=== PATIENT | male | born 1955 | race Caucasian/White ===

== ENCOUNTER → 2016-10-26 | Outpatient (CLI) | payer BC ==
[~2016-10-26] MED LIST: FISH1CAP2 PO; GING550C4 PO; LYSI500T3 PO; MULT1TAB69 PO; NAPR220C11 PO; OMEP20CA4 PO; UBID1CAP47 PO; VALA500T42 PO
== END ==
LOC: LAB 08:07
PROVIDERS: ATTEND Urology
DX: C61 Malignant neoplasm of prostate (principal)
CPT/HCPCS: 36415; 84153